=== PATIENT | female | born 1990 | race Caucasian/White ===

== ENCOUNTER 2018-10-17 02:17 | Emergency (ER) | payer OTHER, BC ==
[2018-10-17 02:24] VITALS: RESP 16
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
[2018-10-17 07:03] VITALS: BP 120/76; PULSE 82; TEMP 98.2; O2SAT 99
--- NOTE | 2018-10-17 09:18 | CT ---
Date of service: 10/17/2018 PROCEDURE: CT HEAD WITHOUT CONTRAST. HISTORY: head injury, headache COMPARISON: None available. TECHNIQUE: Axial computed tomography images were obtained through the head/brain without intravenous contrast. Radiation dose: Total exam DLP = 748.18 mGy-cm. This CT exam was performed using one or more of the following dose reduction techniques: Automated exposure control, adjustment of the mA and/or kV according to patient size, and/or use of iterative reconstruction technique. FINDINGS: HEMORRHAGE: No intracranial hemorrhage. BRAIN: Good corticomedullary differentiation is appreciate without definite edema throughout the brain including the posterior fossa contents. There is no mass effect. There is no suspicious extra-axial collection appreciated. A small lucencies under 1 cm size at the inferior left basal ganglia likely reflecting dilated perivascular space. Chronic lacune not favored. VENTRICLES: Unremarkable. No hydrocephalus. CALVARIUM: Unremarkable. PARANASAL SINUSES: Unremarkable as visualized. No significant inflammatory changes. MASTOID AIR CELLS: Unremarkable as visualized. No inflammatory changes. OTHER FINDINGS: None. IMPRESSION: Unenhanced head CT likely within normal limits. Small dilated perivascular space is favored over chronic lacune inferior left basal ganglia. Concordant preliminary report from [facility], 10/17/2018, 4:33 a.m..
== END 2018-10-17 05:10 | disposition home or self-care (01) ==
LOC: H.ER 02:17
DX: S09.90XA Unspecified injury of head, initial encounter (principal); V43.52XA Car driver injured in collision with other type car in traffic accident, initial encounter; Y92.410 Unspecified street and highway as the place of occurrence of the external cause